=== PATIENT | male | born 1955 | race Two or more races ===

== ENCOUNTER 2019-05-12 09:00 | Outpatient (CLI) | payer BC | END 2019-05-12 23:59 | disposition home or self-care (01) | LOC: VAS 09:00 | PROVIDERS: ATTEND Family Medicine | DX: E11.621 Type 2 diabetes mellitus with foot ulcer (principal); L97.519 Non-pressure chronic ulcer of other part of right foot with unspecified severity; L97.529 Non-pressure chronic ulcer of other part of left foot with unspecified severity; E11.40 Type 2 diabetes mellitus with diabetic neuropathy, unspecified | CPT/HCPCS: 93922; 93925 ==